=== PATIENT | male | born 1980 | race Caucasian/White ===

== ENCOUNTER → 2018-05-23 | Outpatient (CLI) | payer OTHER ==
[~2018-05-23] MED LIST: AMOXICILLIN500 M1 PO; CIPROFLOXACIN500 M1 PO; CORTISPORIN OTI10 M2 OT; DILANTIN100 MG PO; FLAGYL500 MG PO; LISINOPRIL20 MG PO; NORCO 5-325 TA1 EACH PO; NORFLEX100 MG PO; ULTRAM 50MG TAB50 MG PO; ZOFRAN 4 MG ORAL4 M1 DIS; ZPAK PO
[2018-05-23 15:34] LABS: ABSOLUTE BASOPHILS 0.1 thou/uL (0.0-0.2); ABSOLUTE EOSINOPHILS 0.4 thou/uL (0.0-0.7); ABSOLUTE MONOCYTES 0.7 thou/uL (0.0-1.2); ABSOLUTE NEUTROPHILS 3.5 thou/uL (1.6-8.1); BASOPHILS 0.8 %; EOSINOPHILS 5.9 %; HEMATOCRIT 38.9 % (42.0-52.0); HEMOGLOBIN 13.4 gm/dL (14.0-18.0); LYMPHOCYTES 29.6 %; MCH 30.6 pg (26.0-34.0); MCHC 34.5 g/dL (28.0-37.0); MCV 88.6 fL (80.0-100.0); MONOCYTES 10.8 %; MPV 6.5 fl. (7.2-11.1); NUCLEATED RBCS 0 /100WBC; PLATELET COUNT* 390 thou/uL (150-400); POLYS 52.9 %; RBC 4.39 mil/uL (4.50-6.00); RDW-CV 12.1 % (10.5-14.5); WBC 6.7 thou/uL (4.0-11.0)
[2018-05-23 15:46] LABS: ALBUMIN 3.5 g/dL (3.4-5.0); POTASSIUM 3.9 mmol/L (3.5-5.1); TOTAL BILIRUBIN 0.2 mg/dL (<0.1-1.0); TOTAL PROTEIN 7.7 g/dL (6.4-8.2)
[2018-05-23 15:56] LABS: CALCIUM 8.6 mg/dL (8.5-10.1)
[2018-05-23 16:39] LABS: ESR (SEDRATE) 25 mm/hr (0-15)
== END ==
LOC: M.LAB 15:02
PROVIDERS: Psychiatry & Neurology Neuromuscular Medicine
DX: R56.9 Unspecified convulsions (principal); F41.9 Anxiety disorder, unspecified

== ENCOUNTER → 2019-04-04 | Outpatient (CLI) | payer OTHER ==
[2019-04-04 16:50] LABS: ABSOLUTE BASOPHILS 0.1 thou/uL (0.0-0.2); ABSOLUTE EOSINOPHILS 0.4 thou/uL (0.0-0.7); ABSOLUTE LYMPHOCYTES 2.9 thou/uL (0.8-5.3); ABSOLUTE MONOCYTES 0.7 thou/uL (0.0-1.2); ABSOLUTE NEUTROPHILS 4.8 thou/uL (1.6-8.1); BASOPHILS 0.7 %; HEMATOCRIT 41.4 % (42.0-52.0); HEMOGLOBIN 14.2 gm/dL (14.0-18.0); LYMPHOCYTES 32.7 %; MCH 30.9 pg (26.0-34.0); MCHC 34.3 g/dL (28.0-37.0); MCV 90.1 fL (80.0-100.0); MONOCYTES 7.8 %; MPV 6.4 fl. (7.2-11.1); NUCLEATED RBCS 0 /100WBC; PLATELET COUNT* 357 thou/uL (150-400); POLYS 54.8 %; RBC 4.59 mil/uL (4.50-6.00); RDW-CV 12.6 % (10.5-14.5); WBC 8.8 thou/uL (4.0-11.0)
[2019-04-04 17:04] LABS: ALBUMIN 4.3 g/dL (3.4-5.0); CALCIUM 8.7 mg/dL (8.5-10.1); CREATININE 0.9 mg/dL (0.6-1.3); POTASSIUM 4.4 mmol/L (3.5-5.1); TOTAL BILIRUBIN 0.3 mg/dL (<0.1-1.0)
== END ==
LOC: M.LAB 16:31
PROVIDERS: Psychiatry & Neurology Neuromuscular Medicine
DX: R56.9 Unspecified convulsions (principal)

== ENCOUNTER 2019-09-30 03:06 | Emergency (ER) | payer OTHER ==
[~2019-09-30] VITALS: Ht 182.9 cm; Wt 110.2 kg
[2019-09-30] MEDS ORDERED: DILANTIN PO ×2 (03:21)
[2019-09-30] MEDS ORDERED: OMEPRAZOLE 20 M20 M1 PO (03:22)
[2019-09-30] MEDS ORDERED: KAPSPARGO SPRIN50 MG PO (03:22)
[2019-09-30] MEDS ORDERED: LISINPRIL PO (03:23)
[2019-09-30 03:54] LABS: ABSOLUTE BASOPHILS 0.1 thou/uL (0.0-0.2); ABSOLUTE EOSINOPHILS 0.3 thou/uL (0.0-0.7); ABSOLUTE LYMPHOCYTES 1.5 thou/uL (0.8-5.3); ABSOLUTE MONOCYTES 0.9 thou/uL (0.0-1.2); ABSOLUTE NEUTROPHILS 7.8 thou/uL (1.6-8.1); BASOPHILS 0.5 %; EOSINOPHILS 3.2 %; HEMATOCRIT 39.4 % (42.0-52.0); HEMOGLOBIN 13.7 gm/dL (14.0-18.0); LYMPHOCYTES 14.5 %; MCH 31.2 pg (26.0-34.0); MCHC 34.8 g/dL (28.0-37.0); MCV 89.6 fL (80.0-100.0); MONOCYTES 8.6 %; MPV 6.7 fl. (7.2-11.1); NUCLEATED RBCS 0 /100WBC; PLATELET COUNT* 294 thou/uL (150-400); POLYS 73.2 %; RBC 4.39 mil/uL (4.50-6.00); RDW-CV 12.6 % (10.5-14.5); WBC 10.6 thou/uL (4.0-11.0)
[2019-09-30 04:05] LABS: URINE BILIRUBIN NEGATIVE (Negative); URINE BLOOD NEGATIVE (Negative); URINE CLARITY CLEAR; URINE COLOR YELLOW; URINE GLUCOSE-RANDOM NEGATIVE (Negative); URINE KETONES TRACE (Negative); URINE LEUKOCYTES-REFLEX NEGATIVE (Negative); URINE NITRITE-REFLEX NEGATIVE (Negative); URINE PROTEIN TRACE (Negative); URINE SPECIFIC GRAVITY 1.025 (1.005-1.030)
[2019-09-30 04:06] LABS: CALCIUM 7.7 mg/dL (8.5-10.1); POTASSIUM 3.9 mmol/L (3.5-5.1)
[2019-09-30 04:07] LABS: PROTIME 10.4 Seconds (9.20-11.50)
[2019-09-30 04:11] LABS: ALBUMIN 3.4 g/dL (3.4-5.0); TOTAL BILIRUBIN 0.7 mg/dL (<0.1-1.0); TOTAL PROTEIN 6.8 g/dL (6.4-8.2)
[2019-09-30] MEDS ORDERED: PREVACID30 MG PO (06:00)
[2019-09-30] MEDS ORDERED: CARAFATE 1 GM TA1 GM PO (06:00)
[2019-09-30] MEDS ORDERED: ZOFRAN ODT4 MG PO (06:17)
[2019-09-30 06:20] VITALS: BP 121/65
--- NOTE | 2019-09-30 11:42 | EKG ---
[place] [address] ELECTROCARDIOGRAM REPORT Name: [facility]ERRY [facility] Room: [facility]#: [id number] Admission: 09/30/19 Attend Phys: Discharge: 09/30/19 Date of : 78 Date of Service: 09/30/19 0337 Report #: [id number] THIS REPORT FOR: //name// [facility] ED Test Date: 2019-09-30 Test Time: 03:37:45 Pat Name: CHERRY NGO Department: Room: Gender: Director Specialty: Kal : 1980 Requested By: Sussy Chung Order Number: [id number] MD: Clayton Sommers Measurements Intervals [place] Rate: 73 P: 58 NM: 182 QRS: 31 QRSD: 96 T: 13 QT: 396 QTc: 437 Interpretive Statements Sinus rhythm Baseline wander in lead(s) I,III,aVR,aVL Compared to ECG 10/23/2015 19:36:02 No significant changes Electronically Signed On 09-30-2019 11:42:38 CDT by Clayton Sommers [email or web address] <ELECTRONICALLY SIGNED> By: Moy Sommers MD, [facility] 09/30/19 1142 0337 0337 Moy Sommers MD, [facility] /EPI
== END 2019-09-30 06:20 | disposition home or self-care (01) ==
LOC: M.ERS 03:06
PROVIDERS: Personal Emergency Response Attendant
DX: K20.9 Esophagitis, unspecified (principal); K82.8 Other specified diseases of gallbladder; I10 Essential (primary) hypertension; Z88.1 Allergy status to other antibiotic agents; Z88.8 Allergy status to other drugs, medicaments and biological substances

== ENCOUNTER → 2019-10-18 | Outpatient (CLI) | payer OTHER ==
[~2019-10-18] MED LIST changes: +CARAFATE 1 GM TA1 GM PO; +DILANTIN PO; +KAPSPARGO SPRIN50 MG PO; +LISINPRIL PO; +OMEPRAZOLE 20 M20 M1 PO; +PREVACID30 MG PO; +ZOFRAN ODT4 MG PO
== END ==
LOC: M.LAB 15:16
PROVIDERS: ATTEND Internal Medicine Gastroenterology
DX: Z01.812 Encounter for preprocedural laboratory examination (principal); Z20.828 Contact with and (suspected) exposure to other viral communicable diseases; R10.84 Generalized abdominal pain; K21.9 Gastro-esophageal reflux disease without esophagitis

== ENCOUNTER → 2020-03-10 | Outpatient (CLI) | payer OTHER ==
[2020-03-10 12:49] LABS: ABSOLUTE BASOPHILS 0.1 thou/uL (0.0-0.2); ABSOLUTE EOSINOPHILS 0.3 thou/uL (0.0-0.7); ABSOLUTE LYMPHOCYTES 2.5 thou/uL (0.8-5.3); ABSOLUTE MONOCYTES 0.6 thou/uL (0.0-1.2); ABSOLUTE NEUTROPHILS 5.1 thou/uL (1.6-8.1); BASOPHILS 0.7 %; EOSINOPHILS 3.6 %; HEMATOCRIT 43.7 % (42.0-52.0); HEMOGLOBIN 14.7 gm/dL (14.0-18.0); LYMPHOCYTES 28.7 %; MCH 30.5 pg (26.0-34.0); MCHC 33.5 g/dL (28.0-37.0); MCV 90.8 fL (80.0-100.0); MONOCYTES 7.2 %; NUCLEATED RBCS 0 /100WBC; PLATELET COUNT* 401 thou/uL (150-400); POLYS 59.8 %; RBC 4.81 mil/uL (4.50-6.00); RDW-CV 12.7 % (10.5-14.5); WBC 8.6 thou/uL (4.0-11.0)
[2020-03-10 13:06] LABS: ALBUMIN 4.2 g/dL (3.4-5.0); CALCIUM 8.7 mg/dL (8.5-10.1); CREATININE 0.9 mg/dL (0.6-1.3); POTASSIUM 4.3 mmol/L (3.5-5.1); TOTAL BILIRUBIN 0.1 mg/dL (<0.1-1.0); TOTAL PROTEIN 7.8 g/dL (6.4-8.2)
== END ==
LOC: M.LAB 12:33
PROVIDERS: ATTEND Psychiatry & Neurology Neuromuscular Medicine
DX: G40.209 Localization-related (focal) (partial) symptomatic epilepsy and epileptic syndromes with complex partial seizures, not intractable, without status epilepticus (principal)